=== PATIENT | female | born 1960 | race Caucasian/White ===

== ENCOUNTER 2024-07-19 09:13 | Emergency (ER) | payer MEDICARE, SELFPAY ==
[2024-07-19 09:15] VITALS: BP 129/86
--- NOTE | 2024-07-19 09:46 | ED.MUSCINJ ---
HPI-Injury
General
Chief Complaint: Musculo-Skeletal Complaint
Source: patient
Exam Limitations: none
Time Seen by Provider: 07/19/24 09:25
Nursing documentation reviewed up to this point in time: agreed with
History of Present Illness-Injury
Is this injury a work related problem?: No
Initial Injury comments:
63-year-old female presents emergency room due to right knee pain that has been ongoing for several days. She has been kneeling on tile killing ants for the past 3 weeks. She did not take any medication for it.
Past History
Past History
ED Past Medical History: Other (Alcohol abuse ) and Other (Cervical cancer status post chemoradiation and surgery, recent ascites, decreased albumin)
ED Past Surgical History: Orthopedic (Ankle surgery)
Social History
Tobacco: Smoker
Alcohol: Former
Drug: None
Personal: Partner
Living: alone
Employment: Employed
Family History
Family History: Diabetes
Review of Systems
Review of Systems
Allergies reviewed?: Yes
All Other Systems: Not applicable
Constitutional: Reports no symptoms
EENT: Reports no symptoms
Respiratory: Reports no symptoms
Cardiac: Reports no symptoms
ABD/GI: Reports no symptoms
: Reports no symptoms
Musculoskeletal: Reports joint pain
Skin: Reports no symptoms
Neurological: Reports no symptoms
Endocrine: Reports no symptoms
Hematologic/Lymphatic: Reports no symptoms
Psychiatric: Reports no symptoms
Phy Exam
Physical Exam
Physical Exam:
Physical Exam
General: no apparent distress, not acutely ill
Neck: supple. no meningeal signs.
Heart: equal radial pulses.
HEENT: Pupils equal round reactive to light, EOMI
Lungs: no acute respiratory distress.
Abdomen: Nondistended
Neuro: alert and oriented. no focal neurological deficits
Skin: no rash
Psychiatric: well kept. interactive and cooperative
Extremities: no edema. no calf tenderness. negative homans. good distal pulses, right knee: full extension, mildly limited with flexion, small knee effusion
Injury Course
Orders/Labs/Results
Orders:
Orders
07/19/24 09:17
CR Knee- Right 4 Or More View* Urgent
Comment:
Reason For Exam: pain after kneeling
07/19/24 09:45
Knee Immobilizer Right-Treatme ONCE
MDM/Problems Addressed
Differential Diagnosis Includes:
Fracture, internal knee injury, septic arthritis
MDM/Problems Addressed:
63-year-old female with right knee pain, small effusion. Do not suspect septic arthritis. Will apply knee immobilizer and have patient follow-up with orthopedics.
Chronic conditions affecting care: Other (Cirrhosis)
*Radiology
Radiology exam reviewed: preliminary read by ED provider (Right knee x-ray small pleural effusion, no fracture)
*Pulse Oximetry
Patient hypoxic: no
*Critical Care Note
Total Time (30-74mins, 75-104mins- exclusive of procedures): Not Applicable
Data Reviewed
Further Testing Considered But Not Given:
Ultrasound and CT scan not indicated
Patient Management
Social determinants of health affecting care: Living situation and Financial situation
Escalation/DeEscalation of care consider admission/obs:
Admit not indicated
ED Attending Note
-
Portions of this chart may have been created with voice recognition software.� Occasional wrong word or��sound alike� substitutions may have occurred due to the inherent limitations of voice recognition software.
Discharge Plan
Departure
Patient Disposition: Home (Routine Discharge)
Date of Disposition: 07/19/24
Time of Disposition: 09:53
Patient with high blood pressure during this ER visit?: Yes
Condition: Good
Discharge Problem:
Right knee pain
Instructions: Knee Pain (DC), BLOOD PRESSURE
Prescriptions:
No Action
furosemide 40 MG tablet
40 mg PO DAILY
cyanocobalamin (vitamin B-12) 1,000 MCG tablet
1 tab PO DAILY
pantoprazole 40 MG tablet,delayed release (DR/EC)
40 mg PO DAILY
folic acid 1 MG tablet
1 mg PO DAILY
thiamine HCl (vitamin B1) [Vitamin B-1] 50 MG tablet
100 mg PO DAILY
Referrals:
UNKNOWN,NO INTERVIEW [Family Provider] -
Terenec Whiting MD [Active] - Call in 1-3 days for appt
Discharge Date and Time
Print Language: DUTCH
== END 2024-07-19 10:04 | disposition home or self-care (01) ==
LOC: EMR 09:13
PROVIDERS: EMERGENCY PHYSICIAN Emergency Medicine
DX: M25.561 Pain in right knee (principal); M25.461 Effusion, right knee; K74.60 Unspecified cirrhosis of liver; F17.200 Nicotine dependence, unspecified, uncomplicated
CPT/HCPCS: 29505; 99283; 73564

== ENCOUNTER 2024-08-24 09:01 | Emergency (ER) | payer MEDICARE, SELFPAY ==
[2024-08-24 09:05] VITALS: BP 136/90; BMI 19.7
[2024-08-24 09:09] VITALS: BP 136/90
--- NOTE | 2024-08-24 09:30 | EDRN ---
India Matute PA in to see pt.
--- NOTE | 2024-08-24 09:47 | ED.GENMED ---
History of Present Illness
General
Chief Complaint: Female Last Greaser/Gu symptoms
Source: patient
Exam Limitations: none
Time Seen by Provider: 08/24/24 09:09
Nursing documentation reviewed up to this point in time: agreed with
History of Present Illness
History of Present Illness:
This patient is a 63-year-old female with history of cervical cancer who presents to the emergency department for evaluation of tingling sensation in her groin. Patient states symptoms started while she was watching TV last night around 11 PM. She
states that she was sitting on the couch at the time. She reports 'it feels like I have to have an orgasm but I cannot.' Patient states has been a constant sensation since last night and she has been unable to stop touching herself.
Patient denies any dysuria, pelvic discomfort, abnormal vaginal bleeding/discharge. Patient denies any abdominal pain or back pain. No numbness/tingling in extremities. She denies any history of similar symptoms.
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
Past History
Past History
ED Past Medical History: Other (Alcohol abuse ) and Other (Cervical cancer status post chemoradiation and surgery, recent ascites, decreased albumin)
ED Past Surgical History: Orthopedic (Ankle surgery)
Social History
Tobacco: Smoker
Alcohol: Former
Drug: None
Personal: Partner
Living: alone
Employment: Employed
Family History
Family History: Diabetes
Review of Systems
Review of Systems
Allergies reviewed?: Yes
All Other Systems: ROS reviewed and negative except as documented in HPI and ROS
Phy Exam
Physical Exam
Physical Exam:
Vitals: Tachycardic, hypertensive.
General: Patient is very anxious appearing, yelling.
Skin: Warm and dry, no rashes or lesions
Head: Normocephalic, atraumatic
Eyes: Sclera nonicteric. EOMs intact. No nystagmus.
Throat: Protecting airway
Neck: Normal ROM, no cervical spine tenderness, no meningismus
Cardiac: Tachycardic, regular rhythm, no murmurs.
Pulm: Normal respiratory effort, no wheezes, rales, rhonchi heard on exam
.
Abdomen: Abdomen soft and nontender.
: Generalized erythema and inflammation of external genitalia around clitoral tyler. No lesions, ulcerations, rash. Vaginal vault without lesions, ulcerations, or signs of bleeding. Physiologic discharge present in vagina.
Extremities: No evidence of cyanosis or edema
Neuro: AAOx3. CN II-XII intact. No focal neurologic deficits.
Psychiatric: Normal affect.
Course
Orders/Labs/Results
Orders:
Orders
08/24/24 09:18
Electrocardiogram (*1) Urgent
Reason for Study: Chest Pain
EKG- Treatment ONCE
08/24/24 09:30
Lorazepam [Ativan] 0.5 mg PO NOW STA
08/24/24 09:59
Urinalysis Reflex To Culture Urgent
Date Specimen was Collected: 08/24/24
Time Specimen was Collected: 09:55
Urine Drug Abuse Screen Urgent
Date Specimen was Collected: 08/24/24
Time Specimen was Collected: 09:55
Urine Microscopic Reflex Cult Urgent
Urine Culture Urgent
VIDAL Source: U
Specimen Description:
Date Specimen was Collected: 08/24/24
Time Specimen was Collected: 09:55
08/24/24 11:22
Crisis Consult Routine
Reason for Consult: passive SI
Abnormal Lab Results
08/24/24
09:59
Ur Occult Blood Reflex 4+ A
(Negative)
Leukocyte Esterase Rfl 2+ A
(Negative)
Urine RBC 7-10 A /HPF
(0-2)
Urine WBC (Reflex) 30-40 A /HPF
(0-5)
Urine Bacteria (Reflex) Many A
(Negative)
Urine Albumin (Reflex) 3+ A
(Neg - Trace)
Vital Signs
Initial and Last Documented VS:
Initial Vital Signs
Temp Pulse Resp BP Pulse Ox
98 F 120 26 136/90 98
08/24/24 09:05 08/24/24 09:05 08/24/24 09:05 08/24/24 09:05 08/24/24 09:05
Last Documented Vital Signs
Temp Pulse Resp BP Pulse Ox
98 F 86 13 105/81 99
08/24/24 09:05 08/24/24 11:22 08/24/24 11:22 08/24/24 11:22 08/24/24 11:22
MDM/Problems Addressed
Differential Diagnosis Includes:
Not limited to: Vulvar dermatitis, contact dermatitis, neuralgia, cystitis, vaginosis, lichen sclerosis, etc.
MDM/Problems Addressed:
63-year-old female presenting with atypical sensation in genital region which has been constant since last night. She reports feeling like �I have to have an orgasm, but I can't and cannot stop touching the area.' Denies any true itch or pain.
Denies urinary symptoms or abnormal vaginal bleeding/discharge. Denies pelvic pain, abdominal pain, or fever. No recent trauma.
Vitals and physical exam as above. Patient tachycardic on arrival likely secondary to discomfort. She appears very anxious and is yelling in the ED. exam reveals generalized erythema and edema of external genitalia most notable around clitoral
tyler without excoriation, obvious rash, ulcerations, or abnormal discharge. No significant findings on pelvic exam.
Unknown etiology of symptoms. Will obtain urinalysis. Will give patient PO Ativan and ice pack.
Update: Patient�s vital signs have normalized and symptoms have improved minimally. UA somewhat equivocal for infection although favor contamination given many squamous cells and no history of UTI symptoms. Will hold antibiotics at this time.
Do not suspect infectious process. Patient has been under significant levels of stress at home, which may be contributing to patients symptoms however underlying sexual dysfunction disorder or inflammatory process is also on differential. Patient
will require outpatient TR[facility] AND FIELD COACH follow up.
Crisis was consulted to evaluate patient of bedside given significant levels of stress and financial difficulties at home. Patient is not actively suicidal or homicidal. She was provided multiple outpatient resources. Patient and patient�s boyfriend
declined case management consult.
Ultimately � feel patient satble for discharge home with outpatient [facility] AND FIELD COACH follow up. Return precautions discussed. Case was discussed with attending physician.
Chronic conditions affecting care:
N/A
Acute Exacerbation and/or Progression of Chronic Illness:
N/A
*Pulse Oximetry
Patient hypoxic: no
*EKG
Interpreted by ED Provider?: Yes
EKG Intrepretation Date: 08/24/24
Interpretation: abnormal
Comparison EKG: changes noted
Heart Rate: 110
Rate: tachycardiac
Rhythm: sinus
Interval: normal QT interval
QRS Pattern: normal QRS
Ischemia: non-specific ST changes
*Field Sales Consultant Interpretation
Rate: normal
Interpretation: normal
Heart Rate: 86
Rhythm: sinus
*Critical Care Note
Total Time (30-74mins, 75-104mins- exclusive of procedures): Not Applicable
Patient Management
Social determinants of health affecting care: Living situation and Financial situation
Discussion with other providers: Other (Crisis staff)
ED Attending Note
-
Portions of this chart may have been created with voice recognition software.� Occasional wrong word or��sound alike� substitutions may have occurred due to the inherent limitations of voice recognition software.
Discharge Plan
Departure
Patient Disposition: Home (Routine Discharge)
Date of Disposition: 08/24/24
Time of Disposition: 11:57
Patient with high blood pressure during this ER visit?: Yes
Condition: Good
Discharge Problem:
Clitoral irritation
Instructions: BLOOD PRESSURE
Prescriptions:
No Action
furosemide 40 MG tablet
40 mg PO DAILY
cyanocobalamin (vitamin B-12) 1,000 MCG tablet
1 tab PO DAILY
pantoprazole 40 MG tablet,delayed release (DR/EC)
40 mg PO DAILY
folic acid 1 MG tablet
1 mg PO DAILY
thiamine HCl (vitamin B1) [Vitamin B-1] 50 MG tablet
100 mg PO DAILY
Referrals:
Aaron Ariza MD [Family Provider, Internal Medicine] - Follow up in 2-3 days
Activity Restrictions/Additional Instructions:
RETURN TO THE EMERGENCY DEPARTMENT WITH ANY THOUGHTS OF HARMING YOURSELF OR ANYONE ELSE, VISUAL/AUDITORY HALLUCINATIONS, INTRACTABLE DISCOMFORT, FEVERS, CHILLS, OR ANY SIGNS OF INFECTION
- As discussed�we will contact you if your urine culture results positive.
- It is important that you limit any further irritation to your groin area as it will increase risk for infection. You can apply ice to the area as needed to decrease inflammation.
- Please contact your [facility]QU[facility]KER today for further evaluation/management. You should also follow-up with your primary care physician.
- You were given multiple resources today by our crisis team. Please return to emergency department with any safety concerns
Monitor your symptoms closely and return to the emergency department with any acute worsening/new symptoms or any other concerns
Interventions
Interventions:
*Risk Screen - Suicide Last Done: 08/24/24 09:05
*General Assessment Last Done: 08/24/24 09:05
*Neglect/Abuse Screening Last Done: 08/24/24 09:05
*ED- Fall Risk Assessment Last Done: 08/24/24 09:05
*ED COVID-19 Vaccine History Last Done: 08/24/24 09:05
*Nursing Disposition Last Done: 08/24/24 12:20
ED-Female Genitourinary Assessment Last Done: 08/24/24 09:13
Discharge Date and Time
Discharge Date/Time: 08/24/24 12:20
Print Language: ROMANSH
[2024-08-24] MEDS: ATIVAN 0.5 MG PO (09:50)
[2024-08-24 10:00] VITALS: BP 139/85
[2024-08-24 10:09] LABS: Urine Albumin 3+ (Neg - Trace); Urine Bilirubin Negative (Negative); Urine Character Slightly Cloudy (Clear); Urine Color Yellow; Urine Glucose Negative (Negative); Urine Ketone Negative (Negative); Urine Leukocyte 2+ (Negative); Urine Nitrite Negative (Negative); Urine Occult Blood 4+ (Negative); Urine Urobilinogen 1+ (Neg - 1+)
[2024-08-24 10:20] LABS: Urine Squamous Cell >30 /LPF (Few)
[2024-08-24 10:21] LABS: Urine Mucus Few
[2024-08-24 10:24] LABS: Urine White Cell 30-40 /HPF (0-5)
[2024-08-24 10:30] LABS: Urine Bacteria Many (Negative)
[2024-08-24 10:33] LABS: Amphetamines Negative (Negative); Barbiturates Negative (Negative); Benzodiazepines Negative (Negative); Buprenorphine Negative (Negative); Cocaine Negative (Negative); Marijuana Negative (Negative); Methadone Negative (Negative); Methamphetamines Negative (Negative); Opiates Negative (Negative); Phencyclidine Negative (Negative); Tricyclic Antidepressants Negative (Negative)
[2024-08-24 11:22] VITALS: BP 105/81
--- NOTE | 2024-08-24 11:52 | EDRN ---
Crisis in room w/pt at this time.
== END 2024-08-24 12:20 | disposition home or self-care (01) ==
LOC: EMR 09:01
PROVIDERS: Physician Assistant; EMERGENCY PHYSICIAN Emergency Medicine; FAMILY PHYSICIAN Internal Medicine
DX: N90.89 Other specified noninflammatory disorders of vulva and perineum (principal); R03.0 Elevated blood-pressure reading, without diagnosis of hypertension; F17.200 Nicotine dependence, unspecified, uncomplicated; Z59.86 Financial insecurity
CPT/HCPCS: 99284; 80306; 81003; 81015; 87086; 93005